=== PATIENT | female | born 1935 | race Caucasian/White ===

== ENCOUNTER 2019-03-16 10:34 | Inpatient (IN) ==
--- NOTE | 2019-03-16 10:57 | Emergency Department Note ---
Disposition Clinical Impression: Weakness, Anemia, GI bleed, UTI (urinary tract infection), History of fall Disposition: Admitted As Inpatient Condition: Good Time of Disposition: 14:00 General Adult HPI - General Chief complaint: ED Weakness Stated complaint: low bp, weakness Time Seen by Provider: 03/16/19 10:45 Source: patient Mode of arrival: ambulatory Limitations: no limitations Nursing Notes Reviewed: Yes Vital Signs Reviewed: Yes - History of Present Illness HPI Narrative: Patient states she is been weak for the past several days. Today she fell down injuring her right knee so she thought she should come in for evaluation. She was similarly weak last year about this time and had GI bleeding. Onset (ago): day(s) (several days) Location: other (generalized) Pain Scale: 0 Improves with: nothing Worsens with: nothing Associated symptoms: Reports: weakness (generalized). Denies: confusion, chest pain, cough, diaphoresis, fever/chills, loss of appetite, malaise, nausea/vomiting, rash, seizure, shortness of breath, syncope Treatments Prior to Arrival: none - Related Data Home Medications Medication Instructions Recorded Confirmed Acetaminophen [Tylenol] 650 mg PO Q6HR PRN 11/21/15 03/16/19 Allopurinol [Zyloprim 100 MG] 100 mg PO DAILY 11/21/15 03/16/19 Amiodarone [Cordarone] 100 mg PO DAILY 11/21/15 03/16/19 Atorvastatin [Lipitor] 10 mg PO HS 11/21/15 03/16/19 Doxazosin [Cardura] 4 mg PO HS 11/21/15 03/16/19 Ergocalciferol (VITAMIN D2) 2,000 unit PO DAILY 08/26/16 03/16/19 [Vitamin D2] Metoprolol Succinate [Toprol Xl] 25 mg PO DAILY 02/04/18 03/16/19 Ferrous Gluconate 324 mg PO DAILY 03/16/19 03/16/19 Furosemide [Lasix] 20 mg PO DAILY 03/16/19 03/16/19 Lisinopril [Zestril] 60 mg PO DAILY 03/16/19 03/16/19 Omeprazole [PriLOSEC] 40 mg PO DAILY 03/16/19 03/16/19 Previous Rx's Medication Instructions Recorded Cyanocobalamin (B-12) [Vitamin B12] 1,000 mcg PO DAILY 30 Days #30 02/09/18 tablet Allergies Allergy/AdvReac Type Severity Reaction Status Date / Time ciprofloxacin [From Cipro] Allergy Anaphylaxis Verified 02/04/18 07:51 lansoprazole [From Prevacid] Allergy Dizziness Verified 02/04/18 07:51 metronidazole Allergy Fainting Verified 02/04/18 07:51 Penicillins [PCN] Allergy Anaphylaxis Verified 02/04/18 07:51 All systems ED: reviewed and negative except as stated. Review of Systems: As Per HPI Constitutional: Reports: as per HPI, weakness. Denies: fever, chills, weight change Eyes: Denies: eye pain, eye discharge, vision change ENT ED: Denies: ear pain, throat pain, dental pain, hearing loss, epistaxis, congestion, dysphagia Cardiovascular: Denies: chest pain, palpitations, dyspnea on exertion, edema, syncope Respiratory: Denies: cough, dyspnea, wheezes, hemoptysis, stridor Gastrointestinal: Denies: abdominal pain, nausea, vomiting, diarrhea, constipation, hematemesis, melena, hematochezia Genitourinary: Denies: dysuria, frequency, hematuria, discharge Musculoskeletal: Denies: back pain, neck pain, arthralgia, myalgia Integumentary: Denies: rash, abrasion, lesions Neurological: Denies: headache, weakness, numbness, paresthesias, confusion, abnormal gait, vertigo Psychiatric: Denies: anxiety, depression, suicidal thoughts, homicidal thoughts, auditory hallucinations, visual hallucinations Endocrine: Denies: fatigue Hematological/Lymphatic: Denies: easy bleeding, easy bruising Allergic/Immunologic: Denies: facial swelling, urticaria Past Medical History - Past Medical History Attestation: Yes The following information was validated with the patient. Source: patient, nursing notes reviewed Medical history: Reports: atrial fibrillation, coronary artery disease, GERD, hyperlipidemia, hypertension, renal disease, other Surgical history: Reports: appendectomy, cholecystectomy, hysterectomy Psychiatric history: Reports: no psych history [employer] history: Reports: bilateral tubal ligation - Social History Smoking Status: Never smoker Smokeless Tobacco Status: No Alcohol use: Reports: none Drug use: Reports: none Physical Exam - General Limitations: no limitations General appearance: alert, in no apparent distress - Head Head exam: atraumatic, normocephalic, normal inspection - Eye Eye exam: Present: normal appearance, PERRL, EOMI - ENT ENT exam: normal exam, normal oropharynx, mucous membranes moist - Neck Neck exam: Present: normal inspection, full ROM, trachea midline - Chest Chest inspection: Present: normal inspection, symmetric chest wall rise - Respiratory Respiratory exam: Present: normal lung sounds bilaterally - Cardiovascular Cardiovascular exam: Present: regular rate, normal rhythm, normal heart sounds - Abdominal Exam Abdominal exam: Present: soft, Non-Tender. Absent: tenderness, distention, guarding, rebound, rigidity - Rectal Exam Scaffold Erector present during exam: Yes Rectal exam: Present: other (Soft greenish to light brown guaiac positive stool. The andrew-Anal area is also excoriated.). Absent: black stool, bloody stool, fecal impaction, hemorrhoids - Extremities Exam Extremities exam: Present: normal inspection, full ROM. Absent: tenderness, pedal edema - Back Exam Back exam: Present: normal inspection, full ROM. Absent: tenderness - Neurological Exam Neurological exam: Present: alert, oriented X3 - Psychiatric Psychiatric exam: Present: normal affect, normal mood - Skin Skin exam: Present: warm, dry, intact, normal color Course Vital Signs Temperature 97.0 F L 03/16/19 10:40 Pulse Rate 93 03/16/19 10:40 Respiratory Rate 16 03/16/19 10:40 Blood Pressure 112/60 03/16/19 10:40 O2 Sat by Pulse Oximetry 94 03/16/19 10:40 Temperature 97.0 F L 03/16/19 10:40 Pulse Rate 87 03/16/19 13:47 Respiratory Rate 16 03/16/19 10:40 Blood Pressure 134/60 03/16/19 13:47 O2 Sat by Pulse Oximetry 95 03/16/19 13:47 Oxygen Delivery Oxygen Delivery Room Air Medical Decision Making - MDM Narrative Medical decision making narrative: I reviewed the patient's medication list Case was discussed with Dr. Anguiano who is graciously accepted admission to the hospital - Lab Data Lab results reviewed: Yes I reviewed the patient's lab results. Result diagrams: 03/16/19 10:43 03/16/19 10:43 Lab Results 03/16/19 03/16/19 03/16/19 Range/Units 10:43 10:43 10:43 WBC 13.1 H (4.3-11.1) K/mcL RBC 2.47 L (3.82-4.97) M/mcL Hgb 7.8 L (11.5-15.4) g/dL Hct 24.4 L (35.3-44.9) % MCV 98.8 (83.0-100.0) fL MCH 31.6 (28.0-33.3) pg MCHC 32.0 (31.6-35.5) g/dL RDW 16.3 H (11.5-14.5) % Plt Count 244 (140-400) K/mcL MPV 10.3 (9.4-12.4) fL Immature Gran % 0.7 (0-4) % Seg Neutrophils % 79.9 % Lymphocytes % 13.9 % Monocytes % 4.8 % Eosinophils % 0.3 % Basophils % 0.4 % Neutrophils # 10.5 H (1.6-8.9) K/mcL Lymphocytes # 1.8 (0.6-4.6) K/mcL Monocytes # 0.6 (0.0-1.3) K/mcL Eosinophils # 0.0 (0.0-0.6) K/mcL Basophils # 0.1 (0.0-0.2) K/mcL PT 29.2 H (9.4-12.1) Seconds INR 2.6 APTT 36.3 H (26.0-36.0) Seconds Sodium 141 (136-145) mEq/L Potassium 3.4 L (3.5-5.1) mEq/L Chloride 107 (98-107) mEq/L Carbon Dioxide 22 L (23-29) mEq/L BUN 71 H (8-23) mg/dL Creatinine 2.31 H (0.60-1.20) mg/dL Est GFR ( Amer) 24 L (> 60) Est GFR (Non-Af Amer) 20 L (> 60) BUN/Creatinine Ratio 31 H (6-26) Glucose 171 H (70-105) mg/dL Calculated Osmolality 317 H (280-300) Calcium 8.6 (8.6-10.3) mg/dL Total Bilirubin 0.4 (0.3-1.0) mg/dL AST 12 L (13-39) Units/L ALT 8 (7-52) Units/L Alkaline Phosphatase 61 (34-104) Units/L Troponin I < 0.03 (< 0.04) ng/mL Serum Total Protein 5.8 L (6.4-8.9) g/dL Albumin 3.4 L (3.5-5.7) g/dL Globulin 2.4 (2.4-3.5) g/dL Albumin/Globulin Ratio 1.4 (1.1-2.2) Urine Color (Yellow) Urine Clarity (Clear) Urine pH (5.0-8.0) pH Units Ur Specific [place] (1.010-1.025) Urine Protein (Neg-Trace) mg/dL Urine Glucose (UA) (Normal) mg/dL Urine Ketones (Negative) mg/dL Urine Blood (Negative) Urine Nitrite (Negative) Urine Bilirubin (Negative) Urine Urobilinogen (Normal) mg/dL Ur Leukocyte Esterase (Negative) Urine Microscopic RBC (0-3) per hpf Urine Microscopic WBC (0-3) per hpf Ur Squamous Epith Cells (None-Few) per lpf Urine Bacteria (None-Few) per hpf Ur Culture Indicated? (NO) Stool Occult Blood (Negative) 03/16/19 03/16/19 Range/Units 12:00 12:43 WBC (4.3-11.1) K/mcL RBC (3.82-4.97) M/mcL Hgb (11.5-15.4) g/dL Hct (35.3-44.9) % MCV (83.0-100.0) fL MCH (28.0-33.3) pg MCHC (31.6-35.5) g/dL RDW (11.5-14.5) % Plt Count (140-400) K/mcL MPV (9.4-12.4) fL Immature Gran % (0-4) % Seg Neutrophils % % Lymphocytes % % Monocytes % % Eosinophils % % Basophils % % Neutrophils # (1.6-8.9) K/mcL Lymphocytes # (0.6-4.6) K/mcL Monocytes # (0.0-1.3) K/mcL Eosinophils # (0.0-0.6) K/mcL Basophils # (0.0-0.2) K/mcL PT (9.4-12.1) Seconds INR APTT (26.0-36.0) Seconds Sodium (136-145) mEq/L Potassium (3.5-5.1) mEq/L Chloride (98-107) mEq/L Carbon Dioxide (23-29) mEq/L BUN (8-23) mg/dL Creatinine (0.60-1.20) mg/dL Est GFR ( Amer) (> 60) Est GFR (Non-Af Amer) (> 60) BUN/Creatinine Ratio (6-26) Glucose (70-105) mg/dL Calculated Osmolality (280-300) Calcium (8.6-10.3) mg/dL Total Bilirubin (0.3-1.0) mg/dL AST (13-39) Units/L ALT (7-52) Units/L Alkaline Phosphatase (34-104) Units/L Troponin I (< 0.04) ng/mL Serum Total Protein (6.4-8.9) g/dL Albumin (3.5-5.7) g/dL Globulin (2.4-3.5) g/dL Albumin/Globulin Ratio (1.1-2.2) Urine Color Yellow (Yellow) Urine Clarity Cloudy A (Clear) Urine pH 5.0 (5.0-8.0) pH Units Ur Specific [place] 1.025 (1.010-1.025) Urine Protein 100 H (Neg-Trace) mg/dL Urine Glucose (UA) Normal (Normal) mg/dL Urine Ketones Negative (Negative) mg/dL Urine Blood Large H (Negative) Urine Nitrite Negative (Negative) Urine Bilirubin Moderate H (Negative) Urine Urobilinogen Normal (Normal) mg/dL Ur Leukocyte Esterase Large H (Negative) Urine Microscopic RBC TNTC H (0-3) per hpf Urine Microscopic WBC TNTC H (0-3) per hpf Ur Squamous Epith Cells Many H (None-Few) per lpf Urine Bacteria Many H (None-Few) per hpf Ur Culture Indicated? YES A (NO) Stool Occult Blood Positive A (Negative) - Radiology Data Radiology results reviewed: Yes I reviewed the patient's radiology results. - EKG Data EKG #1 EKG attestation: Yes I reviewed and interpreted this EKG. EKG results narrative: EKG shows atrial fibrillation with a controlled rate of 90 bpm QRS duration 92 ms QT interval 346 QTC 424 ms QRS axis -5 degrees no acute ischemic changes are noted
[2019-03-16 11:09] LABS: Basophils # 0.1 K/mcL (0.0-0.2); Basophils % 0.4 %; Eosinophils % 0.3 %; Hematocrit 24.4 % (35.3-44.9); Hemoglobin 7.8 g/dL (11.5-15.4); Immature Granulocytes % 0.7 % (0-4); Lymphocytes # 1.8 K/mcL (0.6-4.6); Lymphocytes % 13.9 %; Mean Corpuscular Hemoglobin 31.6 pg (28.0-33.3); Mean Corpuscular Volume 98.8 fL (83.0-100.0); Mean Platelet Volume 10.3 fL (9.4-12.4); Monocytes # 0.6 K/mcL (0.0-1.3); Monocytes % 4.8 %; Neutrophils # 10.5 K/mcL (1.6-8.9); Platelet Count 244 K/mcL (140-400); Red Blood Count 2.47 M/mcL (3.82-4.97); Red Cell Distribution Width 16.3 % (11.5-14.5); Segmented Neutrophils % 79.9 %; White Blood Count 13.1 K/mcL (4.3-11.1)
[2019-03-16 11:13] LABS: INR 2.6; Prothrombin Time 29.2 Seconds (9.4-12.1)
[2019-03-16 11:15] LABS: Activated Partial Thrombo Time 36.3 Seconds (26.0-36.0)
[2019-03-16 11:23] LABS: Alanine Aminotransferase 8 Units/L (7-52); Albumin 3.4 g/dL (3.5-5.7); Albumin/Globulin Ratio 1.4 (1.1-2.2); Alkaline Phosphatase 61 Units/L (34-104); Aspartate Amino Transferase 12 Units/L (13-39); Bilirubin,Total 0.4 mg/dL (0.3-1.0); Blood Urea Nitrogen 71 mg/dL (8-23); Calcium 8.6 mg/dL (8.6-10.3); Carbon Dioxide 22 mEq/L (23-29); Chloride 107 mEq/L (98-107); Globulin 2.4 g/dL (2.4-3.5); Glucose 171 mg/dL (70-105); Osmolality,Calculated 317 (280-300); Potassium 3.4 mEq/L (3.5-5.1); Sodium 141 mEq/L (136-145); Total Protein 5.8 g/dL (6.4-8.9); Troponin I < 0.03 ng/mL (< 0.04)
[2019-03-16 12:07] LABS: Bilirubin,Urine Moderate (Negative); Blood,Urine Large (Negative); Clarity,Urine Cloudy (Clear); Color,Urine Yellow (Yellow); Glucose,Urine (UA) Normal (Normal); Ketones,Urine Negative (Negative); Leukocyte Esterase,Urine Large (Negative); Nitrite,Urine Negative (Negative); Protein,Urine 100 mg/dL (Neg-Trace); Specific Gravity,Urine 1.025 (1.010-1.025); Urobilinogen,Urine Normal (Normal)
[2019-03-16 12:25] LABS: BUN/Creatinine Ratio 31 (6-26); eGFR For African Americans 24 (> 60); eGFR For Non-African Americans 20 (> 60)
[2019-03-16 12:31] LABS: Bacteria,Urine Many per hpf (None-Few); RBC,Urine TNTC per hpf (0-3); Squamous Epithelial Cell,Urine Many per lpf (None-Few); WBC,Urine TNTC per hpf (0-3)
[2019-03-16] MEDS ORDERED: Sulfamethoxazole/Trimeth DS 1 EACH TABLET PO ONE ×2 (13:33→15:30)
[2019-03-16] MEDS ORDERED: Naloxone 0.4 MG/ML INJ IVP PRN (14:44)
[2019-03-16] MEDS ORDERED: Acetaminophen 325 MG TABLET PO PRN (14:44)
[2019-03-16] MEDS ORDERED: 0.9 % Sodium Chloride 250 ML ONE (15:04)
[2019-03-16] MEDS ORDERED: *HR* Amiodarone 200 MG TABLET PO SCH (16:00)
[2019-03-16] MEDS: 0.9 % Sodium Chloride 1,000 ML IVC SCH (18:50)
[2019-03-16] MEDS: Pantoprazole 40 MG VIAL IVP SCH (20:26)
[2019-03-16] MEDS: Iron Polysaccharide Complex 150 MG CAPSULE PO SCH (20:27)
[2019-03-16] MEDS ORDERED: Sulfamethoxazole/Trimeth DS 1 EACH TABLET PO SCH (21:00)
[2019-03-16 22:02] LABS: Basophils % 0.3 %; Eosinophils % 0.3 %; Hematocrit 26.9 % (35.3-44.9); Hemoglobin 8.7 g/dL (11.5-15.4); Immature Granulocytes % 0.5 % (0-4); Lymphocytes # 1.4 K/mcL (0.6-4.6); Lymphocytes % 10.2 %; Mean Corpuscular HGB Conc 32.3 g/dL (31.6-35.5); Mean Corpuscular Hemoglobin 31.2 pg (28.0-33.3); Mean Corpuscular Volume 96.4 fL (83.0-100.0); Mean Platelet Volume 10.3 fL (9.4-12.4); Monocytes # 0.9 K/mcL (0.0-1.3); Monocytes % 6.4 %; Platelet Count 200 K/mcL (140-400); Red Blood Count 2.79 M/mcL (3.82-4.97); Red Cell Distribution Width 16.6 % (11.5-14.5); Segmented Neutrophils % 82.3 %; White Blood Count 13.4 K/mcL (4.3-11.1)
[2019-03-17] MEDS: Sulfamethoxazole/Trimeth DS 1 EACH TABLET PO SCH ×2 (04:22→16:26)
[2019-03-17 05:58] LABS: Basophils % 0.3 %; Eosinophils # 0.1 K/mcL (0.0-0.6); Eosinophils % 1.2 %; Hematocrit 25.5 % (35.3-44.9); Hemoglobin 8.1 g/dL (11.5-15.4); Immature Granulocytes % 0.5 % (0-4); Lymphocytes # 1.2 K/mcL (0.6-4.6); Lymphocytes % 11.2 %; Mean Corpuscular HGB Conc 31.8 g/dL (31.6-35.5); Mean Corpuscular Volume 97.7 fL (83.0-100.0); Mean Platelet Volume 10.3 fL (9.4-12.4); Monocytes # 0.7 K/mcL (0.0-1.3); Monocytes % 6.6 %; Neutrophils # 8.6 K/mcL (1.6-8.9); Platelet Count 199 K/mcL (140-400); Red Blood Count 2.61 M/mcL (3.82-4.97); Red Cell Distribution Width 17.1 % (11.5-14.5); Segmented Neutrophils % 80.2 %; White Blood Count 10.7 K/mcL (4.3-11.1)
[2019-03-17 06:11] LABS: Calcium 7.9 mg/dL (8.6-10.3); Potassium 3.9 mEq/L (3.5-5.1)
[2019-03-17] MEDS: Pantoprazole 40 MG VIAL IVP SCH (08:25)
[2019-03-17] MEDS: Cholecalciferol (D-3) 1,000 UNIT (25MCG) TABLET PO SCH (08:26)
[2019-03-17] MEDS: Cyanocobalamin (B-12) 1,000 MCG TABLET PO SCH (08:26)
[2019-03-17] MEDS: 0.9 % Sodium Chloride 1,000 ML IVC SCH ×2 (08:27→22:37)
[2019-03-17] MEDS: Iron Polysaccharide Complex 150 MG CAPSULE PO SCH ×3 (08:35→20:43)
[2019-03-17] MEDS ORDERED: Pantoprazole 40 MG VIAL IVP SCH (09:00)
[2019-03-17] MEDS ORDERED: Metoprolol XL (24 HR) Succ 25 MG TAB.ER.24H PO SCH (09:00)
[2019-03-17] MEDS ORDERED: traMADol 50 MG TABLET PO PRN (09:33)
[2019-03-17] MEDS: Ascorbic Acid 500 MG TABLET PO SCH ×2 (10:19→20:44)
--- NOTE | 2019-03-17 10:31 | Internal Med History&Physical ---
Date of Encounter: 03/17/19 Time of Encounter: 10:29 Assessment and Plan (1) Anemia Current visit: Yes Status: Acute Hemoglobin 8.1 after one unit of blood. Will repeat labs at 1 PM. Will follow for results. Occult stool positive. History of G.I. bleed. Blood pressure stable. ascorbic acid ordered. Qualifiers: Anemia type: unspecified type Qualified Code(s): D64.9 - Anemia, unspecified (2) Essential (primary) hypertension Current visit: Yes Status: Chronic Controlled with current medication. Monitor blood pressure. (3) Atrial fibrillation Current visit: Yes Status: Acute Rate and rhythm stable. Continue metoprolol and amiodarone. Qualifiers: Atrial fibrillation type: paroxysmal Qualified Code(s): I48.0 - Paroxysmal atrial fibrillation (4) CKD (chronic kidney disease) Current visit: Yes Status: Acute Creatinine 2.43. Monitor. Avoid nephrotoxic agents. Qualifiers: Chronic kidney disease stage: stage 3 (moderate) Qualified Code(s): N18.3 - Chronic kidney disease, stage 3 (moderate) (5) Weakness Current visit: Yes Status: Acute Assist with ADLs. (6) UTI (urinary tract infection) Current visit: Yes Status: Acute Continue antibiotic. Urine culture pending. Qualifiers: Urinary tract infection type: site unspecified Hematuria presence: without hematuria Qualified Code(s): N39.0 - Urinary tract infection, site not specified Internal Medicine - H&P: HPI Admitted From: Emergency Dept Plans for Post Hospital Care: Home History of present illness: Ms. Mendoza is a 83 year old female presented to emergency room after 2 days of increased weakness. Patient admitted to inpatient unit after being found anemic. Does have history of G.I. bleed. Hemoglobin was 8.7 and received one unit of blood repeat hemoglobin 8.1. Occult stool positive for blood. Creatinine 2.3. Urine culture is pending. Unsure if she has had any blood in her stool due to taking iron. Past medical history includes G.I. bleed, anemia, hypertension, a fib, Gerd, CAD, hyperlipidemia. Denies pain, fever, chills, nausea vomiting or diarrhea. Last bowel movement today. Lives at home with daughter and as independent with ADLs. Past Med Surg Social Fam HX - Past Medical History Medical history: atrial fibrillation, coronary artery disease, GERD, hyperlipidemia, hypertension, renal disease, other Additional medical history: Peptic ulcer disease. uterine cancer- hysterectomy. Psychiatric history: no psych history - Past Surgical History Surgical History: appendectomy, cholecystectomy, hysterectomy Additional surgical history: heart stent x 1. - Social History Smoking Status: Never smoker Smokeless Tobacco Status: No Alcohol use: none Drug use: none Internal Medicine - H&P: Meds Acetaminophen [Tylenol] 650 mg PO Q6HR PRN 11/21/15 [History] Allopurinol [Zyloprim 100 MG] 100 mg PO DAILY 11/21/15 [History] Amiodarone [Cordarone] 100 mg PO DAILY 11/21/15 [History] Atorvastatin [Lipitor] 10 mg PO HS 11/21/15 [History] Doxazosin [Cardura] 4 mg PO HS 11/21/15 [History] Ergocalciferol (VITAMIN D2) [Vitamin D2] 2,000 unit PO DAILY 08/26/16 [History] Metoprolol Succinate [Toprol Xl] 25 mg PO DAILY 02/04/18 [History] Cyanocobalamin (B-12) [Vitamin B12] 1,000 mcg PO DAILY 30 Days #30 tablet 02/09/18 [Rx] Ferrous Gluconate 324 mg PO DAILY 03/16/19 [History] Furosemide [Lasix] 20 mg PO DAILY 03/16/19 [History] Lisinopril [Zestril] 60 mg PO DAILY 03/16/19 [History] Omeprazole [PriLOSEC] 40 mg PO DAILY 03/16/19 [History] Allergy/AdvReac Type Severity Reaction Status Date / Time ciprofloxacin [From Cipro] Allergy Anaphylaxis Verified 02/04/18 07:51 lansoprazole [From Prevacid] Allergy Dizziness Verified 02/04/18 07:51 metronidazole Allergy Fainting Verified 02/04/18 07:51 Penicillins [PCN] Allergy Anaphylaxis Verified 02/04/18 07:51 All Systems PM: A 10-system review of systems was performed and is negative for pertinent findings except as documented above in the HPI. - Constitutional Constitutional: no chills, no fever(s), no night sweats - EENT Eyes: no change in vision, no discharge, no pain, no photophobia Ears: no ear discharge, no ear pain, no tinnitus Nose, mouth and throat: no dysphagia, no nasal discharge, no neck pain, no sore throat - Cardiovascular Cardiovascular ROS IM: no chest pain, no diaphoresis, no dyspnea, no lightheadedness, no palpitations, no syncope - Respiratory Respiratory: no cough, no dyspnea, no wheezing, no excessive phlegm production - Gastrointestinal Gastrointestinal: no abdominal pain, no diarrhea, no hematemesis, no hematochezia, no melena, no nausea, no vomiting - Genitourinary Genitourinary: no change in urinary stream, no dysuria, no flank pain, no hematuria - Musculoskeletal Musculoskeletal ROS IM: no numbness, no tingling - Integumentary Integumentary IM: no rash, no unusual bruising - Neurological Neurological ROS: no confusion, no convulsions, no focal weakness, no numbness, no tingling, no tremor(s) - Hematologic/Lymphatic Hematologic/Lymphatic: no easy bruising - Constitutional Vitals: Temp Pulse Resp BP Pulse Ox 97.8 F 99 15 107/60 97 03/17/19 08:24 03/17/19 10:22 03/17/19 08:24 03/17/19 10:22 03/17/19 08:24 General appearance: Present: cooperative, A&O X 3, pleasant, answers questions appropriately - Head Head exam: Present: atraumatic, normocephalic - Eye Eye exam: Present: PERRL, conjuntiva pink, sclera anicteric Pupils: Present: PERRL - Neck Neck exam general surgery: Present: supple, trachea midline. Absent: lymphadenopathy - Respiratory Respiratory exam: Present: CTAB. Absent: accessory muscle use, rales, rhonchi, wheezes - Cardiovascular Cardiovascular exam: Present: RRR, +S1, +S2. Absent: diastolic murmur, gallop, rubs, systolic murmur - GI/Abdominal GI/Abdominal exam: Present: normal bowel sounds, soft, no peritoneal signs. Absent: distended, tenderness - Extremities Exam Extremities exam: Present: warm, radial pulses palpable and symmetrical. Absent: calf tenderness, cyanotic, pedal edema - Neurological Exam Neurological exam: Present: CN II-XII intact, oriented X3, no focal deficits. Absent: pronater drift, facial droop, speech deficit - Skin Skin exam: Present: dry, intact Internal Med - H&P Results - Labs CBC & Chem 7: 03/17/19 05:35 03/17/19 05:35 Labs: Short CBC 03/16/19 03/16/19 03/17/19 Range/Units 10:43 21:55 05:35 WBC 13.1 H 13.4 H 10.7 (4.3-11.1) K/mcL Hgb 7.8 L 8.7 L 8.1 L (11.5-15.4) g/dL Hct 24.4 L 26.9 L 25.5 L (35.3-44.9) % Plt Count 244 200 199 (140-400) K/mcL Neutrophils # 10.5 H 11.0 H 8.6 (1.6-8.9) K/mcL BMP 03/16/19 03/17/19 10:43 05:35 Sodium 141 141 Potassium 3.4 L 3.9 Chloride 107 111 H Carbon Dioxide 22 L 23 BUN 71 H 66 H Creatinine 2.31 H 2.43 H Glucose 171 H 99 Calcium 8.6 7.9 L Cardiac Enzymes 03/16/19 Range/Units 10:43 Troponin I < 0.03 (< 0.04) ng/mL Liver Function 03/16/19 Range/Units 10:43 Total Bilirubin 0.4 (0.3-1.0) mg/dL AST 12 L (13-39) Units/L ALT 8 (7-52) Units/L Alkaline Phosphatase 61 (34-104) Units/L Albumin 3.4 L (3.5-5.7) g/dL Urine 03/16/19 Range/Units 12:00 Urine Color Yellow (Yellow) Urine Clarity Cloudy A (Clear) Urine pH 5.0 (5.0-8.0) pH Units Ur Specific [place] 1.025 (1.010-1.025) Urine Protein 100 H (Neg-Trace) mg/dL Urine Glucose (UA) Normal (Normal) mg/dL - Impressions ITS Impressions Chest X-Ray 03/16/19 10:55 IMPRESSION: No acute cardiopulmonary disease No acute process of the right knee. D/ /16/2019 11:37:58 Kvgn Rangel MD / [facility] Interpreting Provider: Kvng Rangel MD Knee X-Ray 03/16/19 10:58 IMPRESSION: No acute cardiopulmonary disease No acute process of the right knee. D/ /16/2019 11:37:58 [facility]angel MD / [facility] Interpreting Provider: Kvng Rangel MD
[2019-03-17 13:16] LABS: Basophils % 0.2 %; Eosinophils # 0.1 K/mcL (0.0-0.6); Eosinophils % 0.8 %; Hematocrit 25.6 % (35.3-44.9); Hemoglobin 8.2 g/dL (11.5-15.4); Immature Granulocytes % 0.5 % (0-4); Lymphocytes # 0.9 K/mcL (0.6-4.6); Mean Corpuscular Hemoglobin 30.9 pg (28.0-33.3); Mean Corpuscular Volume 96.6 fL (83.0-100.0); Mean Platelet Volume 10.1 fL (9.4-12.4); Monocytes # 0.5 K/mcL (0.0-1.3); Monocytes % 4.7 %; Neutrophils # 9.1 K/mcL (1.6-8.9); Platelet Count 215 K/mcL (140-400); Red Blood Count 2.65 M/mcL (3.82-4.97); Red Cell Distribution Width 17.6 % (11.5-14.5); Segmented Neutrophils % 85.8 %; White Blood Count 10.6 K/mcL (4.3-11.1)
--- NOTE | 2019-03-17 13:18 | Electrocardiograph Report ---
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
[2019-03-17] MEDS: Iron Sucrose Complex 200 MG in 0.9 % Sodium Chloride 100 ML IVPB SCH (16:26)
[2019-03-17 19:36] LABS: % Iron Saturation 6 % (15-50); Iron 20 mcg/dL (50-170); Transferrin 228 mg/dL (203-362)
[2019-03-17] MEDS: Lactobacillus 1 EACH CAP.SPRINK PO SCH (20:43)
[2019-03-18] MEDS: Sulfamethoxazole/Trimeth DS 1 EACH TABLET PO SCH ×2 (05:39→17:11)
[2019-03-18 05:40] LABS: Hemoglobin 7.9 g/dL (11.5-15.4); Mean Corpuscular HGB Conc 31.6 g/dL (31.6-35.5); Mean Platelet Volume 10.3 fL (9.4-12.4); Platelet Count 211 K/mcL (140-400); Red Blood Count 2.55 M/mcL (3.82-4.97); Red Cell Distribution Width 17.8 % (11.5-14.5); White Blood Count 9.2 K/mcL (4.3-11.1)
[2019-03-18 05:46] LABS: INR 1.2; Prothrombin Time 13.3 Seconds (9.4-12.1)
[2019-03-18 05:54] LABS: Calcium 7.6 mg/dL (8.6-10.3); Potassium 4.1 mEq/L (3.5-5.1)
[2019-03-18] MEDS: Cyanocobalamin (B-12) 1,000 MCG TABLET PO SCH (09:29)
[2019-03-18] MEDS: Lactobacillus 1 EACH CAP.SPRINK PO SCH ×2 (09:29→21:13)
[2019-03-18] MEDS: Cholecalciferol (D-3) 1,000 UNIT (25MCG) TABLET PO SCH (09:29)
[2019-03-18] MEDS: Iron Sucrose Complex 200 MG in 0.9 % Sodium Chloride 100 ML IVPB SCH (09:30)
[2019-03-18] MEDS: Pantoprazole 40 MG VIAL IVP SCH (09:30)
[2019-03-18] MEDS: Ascorbic Acid 500 MG TABLET PO SCH ×2 (09:30→21:13)
[2019-03-18] MEDS: Iron Polysaccharide Complex 150 MG CAPSULE PO SCH ×2 (09:30→21:13)
[2019-03-18] MEDS ORDERED: 0.9 % Sodium Chloride 1,000 ML IVC SCH (09:42)
--- NOTE | 2019-03-18 10:09 | Internal Med Progress Note ---
Date of Encounter: 03/18/19 Time of Encounter: 10:05 - Assessment and plan (1) GI bleeding Current Visit: Yes Status: Acute Assessment and plan: Patient continued to have dark bloody stools during a BM last evening. Stooling frequency has decreased. She continues with occasional nausea but denies any vomiting. Patient had received a unit of packed RBCs when first admitted but her hemoglobin has been slowly trending down with this morning's hemoglobin at 7.9. Patient noted to be somewhat symptomatic during position change with increased heart rate and dizziness. We will transfuse with 1 unit of packed RBCs and follow patient's hemoglobin with serial labs. We will continue to monitor patient throughout the day for active bleeding. We will discontinue IV fluids at this time. Patient continues to receive IV iron Qualifiers: GI bleed type/associated pathology: unspecified gastrointestinal hemorrhage type Qualified Code(s): K92.2 - Gastrointestinal hemorrhage, unspecified (2) Essential (primary) hypertension Current Visit: Yes Status: Chronic Assessment and plan: Vital signs are stable with systolic blood pressure greater than 110. Patient noted to be somewhat orthostatic during position changing, but will receive additional packed RBCs today. We will continue to monitor (3) Atrial fibrillation Current Visit: Yes Status: Chronic Assessment and plan: No acute issues. Heart rate remains irregular with a controlled rate less than 100 per front desk monitor. Noted increased heart rate during exertion. We will continue to monitor closely Qualifiers: Atrial fibrillation type: paroxysmal Qualified Code(s): I48.0 - Paroxysmal atrial fibrillation (4) CKD (chronic kidney disease) Current Visit: Yes Status: Chronic Assessment and plan: No acute issues. Patient's most recent creatinine was 2.38 with a BUNs of 57. We will continue with current medications. We will continue to monitor through serial labs Qualifiers: Chronic kidney disease stage: stage 3 (moderate) Qualified Code(s): N18.3 - Chronic kidney disease, stage 3 (moderate) (5) UTI (urinary tract infection) Current Visit: Yes Status: Acute Assessment and plan: No acute issues. Patient noted to have hematuria during urination this morning. She has been afebrile. We will continue with current antibiotics. Qualifiers: Urinary tract infection type: site unspecified Hematuria presence: without hematuria Qualified Code(s): N39.0 - Urinary tract infection, site not specified - Time Spent With Patient less than 15 minutes - Subjective Interval history: Patient appears relaxed and currently denies any discomforts or shortness of breath. Patient states that she had a dark loose stool last evening but has not had any further stooling since that time. Patient also states that she has occasional nausea but denies any vomiting. Nurse reports patient mobilizes out of bed that she becomes dizzy and her heart rate has been noted to increase greater than 100 on front desk monitor. Patient with a history of atrial fibrillation with a controlled rate of 70-80 bpm per front desk monitor. Patient denies any chest discomforts or palpitations. Patient's GI bleed was discussed with along with the last evening affects of the Xarelto, which was only discontinued on her admission. Patient states understanding. Nursing reports patient had hematuria during urination this morning. - Constitutional Vitals: Temp Pulse Resp BP Pulse Ox 97.5 F L 65 14 118/69 97 03/18/19 07:28 03/18/19 07:28 03/18/19 07:28 03/18/19 07:28 03/18/19 07:28 General appearance: Present: cooperative, A&O X 3, pleasant, answers questions appropriately - Head Head exam: Present: atraumatic, normocephalic - Eye Eye exam: Present: PERRL, conjuntiva pink, sclera anicteric Pupils: Present: PERRL - Neck Neck exam general surgery: Present: supple, trachea midline. Absent: lymphadenopathy - Respiratory Respiratory exam: Present: decreased breath sounds, CTAB. Absent: accessory muscle use, rales, rhonchi, wheezes - Cardiovascular Cardiovascular exam: Present: RRR, +S1, +S2. Absent: diastolic murmur, gallop, rubs, systolic murmur - GI/Abdominal GI/Abdominal exam: Present: normal bowel sounds, soft, no peritoneal signs. Absent: distended, tenderness - Extremities Exam Extremities exam: Present: warm, radial pulses palpable and symmetrical. Absent: calf tenderness, cyanotic, pedal edema - Neurological Exam Neurological exam: Present: CN II-XII intact, oriented X3, no focal deficits. Absent: pronater drift, facial droop, speech deficit - Skin Skin exam: Present: dry, intact Internal Medicine: Result - Labs CBC & Chem 7: 03/18/19 05:10 03/18/19 05:10 Labs: Short CBC 03/17/19 03/18/19 Range/Units 13:00 05:10 WBC 10.6 9.2 (4.3-11.1) K/mcL Hgb 8.2 L 7.9 L (11.5-15.4) g/dL Hct 25.6 L 25.0 L (35.3-44.9) % Plt Count 215 211 (140-400) K/mcL Neutrophils # 9.1 H (1.6-8.9) K/mcL BMP 03/18/19 05:10 Sodium 142 Potassium 4.1 Chloride 116 H Carbon Dioxide 21 L BUN 57 H Creatinine 2.38 H Glucose 94 Calcium 7.6 L - ABG Interpretation ABG results: PT/INR, D-dimer PT 13.3 Seconds (9.4-12.1) H D 03/18/19 05:10 - Impressions Impressions Abdomen/Pelvis CT 03/17/19 15:19 IMPRESSION: 1. Within the lung bases, scar or atelectasis and granulomatous changes are noted. Coronary artery calcification is evident. 2. Within the abdomen, the patient has hepatic and renal cysts. Gallbladder is surgically absent. 3. Colonic diverticulosis without diverticulitis. No bowel obstruction or bowel wall thickening. 4. No urinary obstruction, appendicitis or evidence of acute diverticulitis. Other findings as above. D/ / 03/17/2019 17:38:43 Elizabeth Elizabeth MD / [email or web address] Interpreting Provider: Elizabeth Elizabeth MD Consult Discharge Plan - Plan Referrals: Jessi Soto CNP [Primary Care Provider] -
[2019-03-18] MEDS ORDERED: 0.9 % Sodium Chloride 250 ML ONE (11:57)
[2019-03-19] MEDS: Sulfamethoxazole/Trimeth DS 1 EACH TABLET PO SCH (04:44)
[2019-03-19 05:56] LABS: Basophils % 0.4 %; Eosinophils # 0.3 K/mcL (0.0-0.6); Eosinophils % 2.7 %; Hematocrit 28.8 % (35.3-44.9); Hemoglobin 9.3 g/dL (11.5-15.4); Immature Granulocytes % 0.6 % (0-4); Lymphocytes # 1.2 K/mcL (0.6-4.6); Lymphocytes % 12.2 %; Mean Corpuscular HGB Conc 32.3 g/dL (31.6-35.5); Mean Corpuscular Hemoglobin 30.7 pg (28.0-33.3); Mean Platelet Volume 10.2 fL (9.4-12.4); Monocytes # 0.7 K/mcL (0.0-1.3); Monocytes % 6.7 %; Neutrophils # 7.6 K/mcL (1.6-8.9); Platelet Count 198 K/mcL (140-400); Red Blood Count 3.03 M/mcL (3.82-4.97); Red Cell Distribution Width 18.5 % (11.5-14.5); Segmented Neutrophils % 77.4 %; White Blood Count 9.8 K/mcL (4.3-11.1)
[2019-03-19 05:59] LABS: INR 1.2; Prothrombin Time 13.5 Seconds (9.4-12.1)
[2019-03-19 06:13] LABS: Albumin 2.9 g/dL (3.5-5.7); Albumin/Globulin Ratio 1.4 (1.1-2.2); Bilirubin,Total 0.3 mg/dL (0.3-1.0); Calcium 7.9 mg/dL (8.6-10.3); Globulin 2.1 g/dL (2.4-3.5); Magnesium 2.1 mg/dL (1.6-2.6); Potassium 3.9 mEq/L (3.5-5.1)
[2019-03-19] MEDS: Cholecalciferol (D-3) 1,000 UNIT (25MCG) TABLET PO SCH (08:39)
[2019-03-19] MEDS: Lactobacillus 1 EACH CAP.SPRINK PO SCH (08:39)
[2019-03-19] MEDS: Ascorbic Acid 500 MG TABLET PO SCH (08:39)
[2019-03-19] MEDS: Iron Polysaccharide Complex 150 MG CAPSULE PO SCH (08:39)
[2019-03-19] MEDS: Pantoprazole 40 MG VIAL IVP SCH (08:39)
[2019-03-19] MEDS: Cyanocobalamin (B-12) 1,000 MCG TABLET PO SCH (08:39)
[2019-03-19] MEDS: Iron Sucrose Complex 200 MG in 0.9 % Sodium Chloride 100 ML IVPB SCH (09:57)
--- NOTE | 2019-03-19 10:13 | Discharge Summary ---
Date of Encounter: 03/19/19 Time of Encounter: 10:10 - Discharge Diagnosis (1) GI bleeding Priority: Primary Status: Acute Comments: Patient was admitted to the medical floor after experiencing a GI bleed. Patient had received a total of 2 units of packed RBCs and currently has maintained a hemoglobin of 9.2. Patient is showing no further signs of active bleeding with no bloody stools in the past 24 hours. Denies any abdominal cramping. States she is passing gas. Vital signs have remained stable during the duration of her admission. Patient's Xarelto and aspirin has been held since admission and she will be discharged with instructions to continue to hold these medications until seen by her GI physician. Follow-up visit is being arranged with her supervisor blood donor recruiters, who she has been established with due to a similar incident approximately one year ago. During that time, she was evaluated with no significant findings after having a endoscopy, colonoscopy and the capsule camera test. Patient is also to follow-up with her PCP when one week. Qualifiers: GI bleed type/associated pathology: unspecified gastrointestinal hemorrhage type Qualified Code(s): K92.2 - Gastrointestinal hemorrhage, unspecified (2) Essential (primary) hypertension Priority: Secondary Status: Chronic Comments: No acute issues during her stay. Patient's blood pressure has been stable and she will be discharged on her current medications. Patient's to follow-up with PCP after discharge for further management (3) Atrial fibrillation Priority: Secondary Status: Chronic Comments: No acute issues. Patient's heart rate has been well controlled less than 100, although her cardiac/vascular sonographer patient's heart rate would drop as low as 50 bpm while asleep. Patient's blood pressure remained stable during these periods. Patient continues on metoprolol. She is continue her current medications and follow-up with her PCP after discharge. Patient was instructed to hold her Xarelto and aspirin until seen by her supervisor blood donor recruiters. Qualifiers: Atrial fibrillation type: paroxysmal Qualified Code(s): I48.0 - Paroxysmal atrial fibrillation (4) CKD (chronic kidney disease) Priority: Secondary Status: Chronic Comments: No acute issues during her stay. Patient's most recent creatinine was 2.17. She is to continue follow-up with her PCP for further management and continue with her current medications Qualifiers: Chronic kidney disease stage: stage 3 (moderate) Qualified Code(s): N18.3 - Chronic kidney disease, stage 3 (moderate) (5) UTI (urinary tract infection) Priority: Secondary Status: Acute Comments: Patient had a urinalysis that was obtained during admission which triggered a culture. Culture showed possible contaminated sample with Vision is. Patient's been afebrile and denies any dysuria. We will discontinue her current antibiotics and she can follow-up with PCP for further management Qualifiers: Urinary tract infection type: site unspecified Hematuria presence: without hematuria Qualified Code(s): N39.0 - Urinary tract infection, site not specified Hospital course: Ms. Mendoza is a 83 year old female, who presented to emergency room after 2 days of increased weakness. Patient admitted to inpatient unit after being found anemic with a Hgb 7.8 and was experiencing dark bloody stools on day of admission. Patient has been on Xarelto and ASA for her Hx of Afib, which was held since day of admission. She has a history of G.I. bleed with a similar incident approximately one year ago, during which time she had a full evaluation by GI. She had a EGD, colonoscopy and had the swallow of the camera capsule, all of which show no significant source of bleed. She received one unit of PRBC with the repeat hemoglobin 8.1. Occult stool positive for blood. Creatinine 2.3 with a Hx of CKD. Urinalysis show possbile UTI and triggered a culture, which the final result showed mixed path with possible contamination. ATB DC'd. Patient's hemoglobin had trended down to 7.9 she received a second unit of packed RBCs. Over the past 24 hours patient has shown no continued stooling. Patient's hemoglobin today was stable at 9.2. Patient's vital signs have remained stable during her stay. Patient's been on cardiac/vascular sonographer for atrial fibrillation, which is shown a controlled ventricular rate less than 100. Patient has shown a drop in heart rate into the 50s while asleep, but her systolic blood pressure remains stable greater than 100. Past medical history includes G.I. bleed, anemia, hypertension, a fib, Gerd, CAD, hyperlipidemia. Lives at home with daughter and as independent with ADLs. She will be discharged home with instructions to hold her Xarelto and aspirin until she sees her supervisor blood donor recruiters. Patient also was instructed to hold her Cardura until seen by her family physician. An appointment will be made for a follow-up with her supervisor blood donor recruiters after discharge. Patient is to follow-up with her PCP in 1 week for further evaluation and management. Discharge discussed with: patient Time spent discussing smoking cessation with patient: 3 to 10 minutes - Time Spent with Patient Total time spent providing and/or coordinating discharge services: Time spent: Less than 30 minutes - Discharge Medications Prescriptions: No Action Metoprolol Succinate [Toprol Xl] 25 mg PO DAILY Cyanocobalamin (B-12) [Vitamin B12] 1,000 mcg PO DAILY 30 Days #30 tablet Acetaminophen [Tylenol] 650 mg PO Q6HR PRN PRN Reason: Pain Atorvastatin [Lipitor] 10 mg PO HS Allopurinol [Zyloprim 100 MG] 100 mg PO DAILY Amiodarone [Cordarone] 100 mg PO DAILY Ergocalciferol (VITAMIN D2) [Vitamin D2] 2,000 unit PO DAILY Ferrous Gluconate 324 mg PO DAILY Furosemide [Lasix] 20 mg PO DAILY Lisinopril [Zestril] 60 mg PO DAILY Omeprazole [PriLOSEC] 40 mg PO DAILY Home Medications: Acetaminophen [Tylenol] 650 mg PO Q6HR PRN 11/21/15 [History] Allopurinol [Zyloprim 100 MG] 100 mg PO DAILY 11/21/15 [History] Amiodarone [Cordarone] 100 mg PO DAILY 11/21/15 [History] Atorvastatin [Lipitor] 10 mg PO HS 11/21/15 [History] Ergocalciferol (VITAMIN D2) [Vitamin D2] 2,000 unit PO DAILY 08/26/16 [History] Metoprolol Succinate [Toprol Xl] 25 mg PO DAILY 02/04/18 [History] Cyanocobalamin (B-12) [Vitamin B12] 1,000 mcg PO DAILY 30 Days #30 tablet 02/09/18 [Rx] Ferrous Gluconate 324 mg PO DAILY 03/16/19 [History] Furosemide [Lasix] 20 mg PO DAILY 03/16/19 [History] Lisinopril [Zestril] 60 mg PO DAILY 03/16/19 [History] Omeprazole [PriLOSEC] 40 mg PO DAILY 03/16/19 [History] Allergies/Adverse Reactions: Allergy/AdvReac Type Severity Reaction Status Date / Time ciprofloxacin [From Cipro] Allergy Anaphylaxis Verified 02/04/18 07:51 lansoprazole [From Prevacid] Allergy Dizziness Verified 02/04/18 07:51 metronidazole Allergy Fainting Verified 02/04/18 07:51 Penicillins [PCN] Allergy Anaphylaxis Verified 02/04/18 07:51 Date of admission: 03/18/19 12:47 Primary care physician: Jessi Soto CNP Consults: 03/16/19 15:09 Consult to Nutrition [CONS] Routine Comment: poor appetite Consulting Provider: NUTRITION Reason for Dietary Consult: MST Score Discharging clinician: Lawson Camarillo - Constitutional Vitals: Temp Pulse Resp BP Pulse Ox 97.9 F 70 18 146/51 97 03/19/19 07:22 03/19/19 07:22 03/19/19 07:22 03/19/19 07:22 03/19/19 07:22 General appearance: Present: cooperative, A&O X 3, pleasant, answers questions appropriately - Head Head exam: Present: atraumatic, normocephalic - Eye Eye exam: Present: PERRL, conjuntiva pink, sclera anicteric Pupils: Present: PERRL - Neck Neck exam general surgery: Present: supple, trachea midline. Absent: lymphadenopathy - Respiratory Respiratory exam: Present: decreased breath sounds, CTAB. Absent: accessory muscle use, rales, rhonchi, wheezes - Cardiovascular Cardiovascular exam: Present: irregular rhythm, RRR, +S1, +S2. Absent: diastolic murmur, gallop, rubs, systolic murmur - GI/Abdominal GI/Abdominal exam: Present: normal bowel sounds, soft, no peritoneal signs. Absent: distended, tenderness - Extremities Exam Extremities exam: Present: warm, radial pulses palpable and symmetrical. Absent: calf tenderness, cyanotic, pedal edema - Neurological Exam Neurological exam: Present: CN II-XII intact, oriented X3, no focal deficits. Absent: pronater drift, facial droop, speech deficit - Skin Skin exam: Present: dry, intact - Patient Status Disposition: Home, Self-Care Condition: Good Functional capacity at discharge: independent ambulation Overall status at discharge: patient is progressing back to baseline - Discharge Instructions Follow Up With: Jessi Soto CNP [Primary Care Provider] - - Diet and Activity Activity: increase activity as tolerated Diet: low fat, low cholesterol, low salt diet
[2019-03-19 11:23] VITALS: BP 144/65
== END 2019-03-19 14:33 | disposition home or self-care (01) | DRG 378 ==
LOC: INPGRE 10:34 → EMEROOGRE 10:34 → INPGRE 14:57
PROVIDERS: ADMIT Internal Medicine; ATTEND Internal Medicine